=== PATIENT | male | born 1975 | race Caucasian/White ===

== ENCOUNTER 2020-04-04 16:32 | Emergency (ER) | payer BC, SELFPAY ==
[2020-04-04 16:49] VITALS: BP 160/90; PULSE 60; RESP 16; TEMP 36.8; O2SAT 98; BMI 33.9
[2020-04-04 17:29] VITALS: BP 160/90; PULSE 60; RESP 16; TEMP 36.8; O2SAT 98; BMI 33.8
--- NOTE | 2020-04-04 17:54 | HMH.EDUTC ---
[facility] Disposition Clinical Impression: Infection of toenail Disposition: Home, Self-Care Condition on Discharge: Good Instructions: Cephalexin, Bacitracin Topical Additional Instructions: Use ointment around the toenail on both great toes as advised and take oral medication as prescribed *Call and make appointment with Podiatry for further treatment and evaluation Return if needed Straight to ER if any life threatening symptoms Follow up with Family doctor if needed Prescriptions: Bacitracin [Bacitracin Oint 0.9GM UDP] 1 each TP TID 10 Days #30 packet Transmission Status: Pending to [facility] cephALEXin [Keflex 500mg Cap] 500 mg PO Q6H 7 Days #28 cap Transmission Status: Pending to [facility] Referrals: PCP,No [Primary Care Provider] - As needed Juju Silvestre DPM [Staff Physician] - Leanne Edwards APRN [Nurse Practitioner] - Time of Disposition: 18:04 Medical Decision Making - Jonah Inquiry Pt receiving controlled substance: No Jonah was queried for this patient: No Vital Signs: 04/04/20 16:49 04/04/20 17:29 Temperature 98.2 F 98.2 F Temperature Source Oral Oral Pulse Rate [Right Brachial] 60 60 Respiratory Rate 16 16 Blood Pressure [Right Arm] 160/90 H 160/90 H Blood Pressure Mean [Right Arm] 113 113 Blood Pressure Source [Right Arm] Automatic Cuff Automatic Cuff Blood Pressure Position [Right Arm] Sitting Sitting 02 Sat by Pulse Oximetry 98 98 Oxygen Delivery Method Room Air Room Air [facility] HPI - General Stated complaint: Both big toes Nails Infected Time Seen by Provider: 04/04/20 17:54 Mode of Arrival: Ambulatory Source of Information: Patient Limitations: No Limitations Description of Symptoms (Recalled from Triage Doc. by RN): PATIENT C/O INFECTED TOENAILS ON BILATERAL FEET HEENT Symptoms (Recalled from RN notes): No Resp Symptoms (Recalled from RN notes): No Skin Symptoms (Recalled from RN notes): Yes MS Symptoms (Recalled from RN notes): Yes Functional Status (Recalled from RN notes): WNL - History of Present Illness Provider Complaint: Patient states that he has noticed that both his great toe nails are infected States that they are red around his nail and his toenails are thick and flaky State that he also noticed some drainage from the side of his left great toe that has continued to get worse States that they come in to see if he could get something to help to clear the infection - Related Data Home Medications Medication Instructions Recorded Confirmed Fluoxetine HCl [Prozac 20mg 40 mg PO DAILY 04/04/20 04/04/20 Capsule] Lansoprazole [Prevacid 24Hr] 15 mg PO DAILY 04/04/20 04/04/20 Metoprolol Tartrate [Lopressor 25 mg PO BID 04/04/20 04/04/20 25mg tablet] Mirtazapine 7.5 mg PO HS 04/04/20 04/04/20 Previous Rx's Medication Instructions Recorded Bacitracin [Bacitracin Oint 0.9GM 1 each TP TID 10 Days #30 packet 04/04/20 UDP] cephALEXin [Keflex 500mg Cap] 500 mg PO Q6H 7 Days #28 cap 04/04/20 Allergies Allergy/AdvReac Type Severity Reaction Status Date / Time No Known Allergies Allergy Verified 04/04/20 17:35 - Worker's Comp Is this a Worker's Comp case?: No [facility] History - Hepatitis A Screen Drug use history?: No High risk sexual behaviors?: No History of sexually transmitted infection?: No Currently employed?: No Childcare worker?: No Do you have indoor plumbing?: Yes Do you have electricity?: Yes Attestation statement:: This patient has been screened for Hepatitis A risk factors. I have reviewed the patient's past medical history: Yes - Social History Smoking Status: Current every day smoker Tobacco Type: cigarettes # Packs/Day (cigarettes): 1 Alcohol Intake: never Occupational Status: other ROS Obtained: Yes All systems reviewed & no additional complaints, Yes Systems reviewed as appropriate & no additional complaints - Allergic/Immunologic Comments: Bilateral infected great toenails
[2020-04-04 18:05] VITALS: BP 160/90; PULSE 60; RESP 16; TEMP 36.8; O2SAT 98
== END 2020-04-04 18:10 | disposition home or self-care (01) ==
LOC: ER 16:55 → UTC 16:56
PROVIDERS: Emergency Provider Nurse Practitioner
DX: L03.031 Cellulitis of right toe (principal); L03.032 Cellulitis of left toe; F17.210 Nicotine dependence, cigarettes, uncomplicated; K21.9 Gastro-esophageal reflux disease without esophagitis; I10 Essential (primary) hypertension; F41.8 Other specified anxiety disorders; Z79.899 Other long term (current) drug therapy
CPT/HCPCS: 99201

== ENCOUNTER 2020-04-08 14:05 | Emergency (ER) | payer BC, SELFPAY ==
--- NOTE | 2020-04-08 14:04 | ECG_ITS ---
APPROVED REPORT Exam: Resting ECG HR:54 bpm ECG Measurements Heart Rate 54 AXES NE 142 P 38 QRSd 90 QRS 10 QT 424 T 33 QTc 402 <Conclusion> Sinus bradycardia Otherwise normal ECG Electronically signed by : Robert Guadlaupe, 04/11/2020 17:15:19
[2020-04-08 14:05] VITALS: BP 116/73; PULSE 59; RESP 18; TEMP 36.6; O2SAT 98; BMI 35.2
--- NOTE | 2020-04-08 14:13 | HMH.EDGENADL ---
ED Disposition Clinical Impression: Chest pain Qualifiers: Chest pain type: unspecified Qualified Code(s): R07.9 - Chest pain, unspecified Disposition: Home, Self-Care Condition on Discharge: Good Instructions: DI for Chest Pain Additional Instructions: Additional instructions for CHEST PAIN: Follow-up in the office with Dr. Flynn. Call tomorrow to make that appointment. Return immediately if worsening chest pain, vomiting, shortness of breath, fever, coughing of blood. Referrals: PCP,No [Primary Care Provider] - Anthony Flynn MD [Staff Physician] - - Critical Care Critical Care Time: No Attestation: On , the high probability of a clinically significant, sudden or life threatening deterioration of the following system(s) required my full and direct attention, intervention and personal management. The time I documented below is in addition to time spent performing reported procedures but includes the following listed in this critical care notation. Medical Decision Making - Jonah Inquiry Pt receiving controlled substance: No Vital Signs: 04/08/20 14:05 Temperature 97.9 F Temperature Source Oral Pulse Rate [Radial] 59 L Respiratory Rate 18 Blood Pressure [Right Arm] 116/73 Blood Pressure Mean [Right Arm] 87 Blood Pressure Source [Right Arm] Automatic Cuff Blood Pressure Position [Right Arm] Sitting 02 Sat by Pulse Oximetry 98 Oxygen Delivery Method Room Air - Lab Data Lab Results 04/08/20 14:07: WBC 9.7, RBC 5.38, Hgb 16.3, Hct 46.8, MCV 86.9, MCH 30.4, MCHC 34.9, RDW 13.9, Plt Count 347, MPV 7.7, Neut % (Auto) 57.4, Lymph % (Auto) 34.0, [place] % (Auto) 4.5, Eos % (Auto) 2.9, Baso % (Auto) 1.2, Neut # (Auto) 5.6, Lymph # (Auto) 3.3, [place] # (Auto) 0.4, Eos # (Auto) 0.3, Baso # (Auto) 0.1 04/08/20 14:07: Sodium 138, Potassium 4.2, Chloride 103, Carbon Dioxide 26, Anion Gap 13.2, BUN 12, Creatinine 0.80, Estimated Creat Clear 192, Estimated GFR 104, Est GFR ( Amer) 126, Glucose 102 H, Calcium 8.8, Total Bilirubin 0.4, AST 37, ALT 33, Alkaline Phosphatase 142 H, Troponin I < 0.01, Total Protein 7.0, Albumin 4.1, Globulin 2.9, Albumin/Globulin Ratio 1.4 04/08/20 16:59: Troponin I < 0.01 Result diagrams: 04/08/20 14:07 04/08/20 14:07 Orders (Tests/Meds): ORDERS Category Date Time Status Troponin I Q3H Lab 04/08/20 20:15 Ordered - Radiology Data #1 Image(s): Chest Image Reviewed: Yes I reviewed the patient's radiology image Preliminary Findings: Normal/NAD - ECG Data Tracing #1 EKG interpreted by Dar Mack MD: Rhythm: sinus bradycardia Rate: 54 [place]: normal Ectopy: none Conduction: normal ST Segment Changes: none T Wave Changes: none Q Waves: none No evidence of acute ischemia or injury - Physician Consults Physician Consulted: MAXI Diaz, for Dr. Flynn Time: 17:15 Reason -: Cardiology Eval/Care Comment/Response: If second troponin negative, can discharge to follow-up in their office - Reevaluation(s) Time: 18:27 Reevaluation #1: Second troponin negative. Patient says he feels better. No chest pain. Discussed follow-up in the office with Dr. Flynn and he is agreeable. General Adult HPI - General Chief complaint: Chest Pain Stated complaint: Chest Pain Time Seen by Provider: 04/08/20 14:13 - History of Present Illness HPI narrative: The patient arrives by ambulance for chest pain. He is currently in alcohol rehab in [facility]. He says that both of his legs feel tingly for the past 2 days, left worse than right. Last night he began experiencing intermittent sternal chest pressure brought on by smoking and lasting about 5 minutes per episode. This morning his right shoulder began hurting. Pain comes and goes and hurts worse with movement. Denies nausea, vomiting, shortness of breath. He does not have any known heart problems and is never had a cardiac work-up to his knowledge. He is a smoker and has hypertensi
--- NOTE | 2020-04-08 14:14 | XR_ITS ---
PROCEDURE: XR CHEST 2V CLINICAL HISTORY: chest pain COMPARISON: No exams were available for comparison FINDINGS: The cardiomediastinal silhouette and pulmonary vascularity are within normal limits. The lungs are clear without infiltrates, suspicious nodules, or pleural effusions. No acute bony abnormalities. IMPRESSION: No acute findings. Dictated by: Jon Nagy MD 04/08/2020 14:42 Electronically signed by Jon Nagy MD in [place] 04/08/2020 14:42
[2020-04-08 14:22] LABS: Basophils # 0.1 K/mm3 (0-0.2); Basophils % 1.2 % (0.1-2.0); Chloride 103 mmol/L (98-107); Eosinophils # 0.3 K/mm3 (0.0-0.4); Eosinophils % 2.9 % (0.1-12.0); Hematocrit 46.8 % (42.0-52.0); Hemoglobin 16.3 g/dL (14.1-18.0); Lymphocytes # 3.3 K/mm3 (0.7-4.5); Mean Corpuscular HGB Conc 34.9 g/dL (31.8-35.4); Mean Corpuscular Hemoglobin 30.4 pg (27.0-31.2); Mean Corpuscular Volume 86.9 fl (80-94); Mean Platelet Volume 7.7 fl (7.4-10.4); Monocytes # 0.4 K/mm3 (0.1-1.0); Monocytes % 4.5 % (1.7-9.3); Neutrophils # 5.6 K/mm3 (1.8-7.8); Neutrophils % 57.4 % (37.0-80.0); Platelet Count 347 K/mm3 (142-424); Red Blood Count 5.38 M/mm3 (4.60-6.20); Red Cell Distribution Width 13.9 % (11.5-17.5); White Blood Count 9.7 K/mm3 (4.8-10.8)
[2020-04-08 14:23] LABS: Potassium 4.2 mmoL/L (3.5-5.1); Sodium 138 mmol/L (136-145)
[2020-04-08 14:25] LABS: Alanine Aminotransferase 33 U/L (12-78); Alkaline Phosphatase 142 U/L (38-126); Anion Gap 13.2 mEq/L (5-15); Aspartate Amino Transferase 37 U/L (17-59); Bilirubin,Total 0.4 mg/dl (0.2-1.3); Blood Urea Nitrogen 12 mg/dl (9-20); Carbon Dioxide 26 mmol/L (22.0-30.0); Creatinine Clearance Estimated 192 mL/min (50-200); Estimated Glomerular Filt Rate 104 ml/min (>60); GFR (African American) 126 ML/MIN (>60)
[2020-04-08 14:26] LABS: Albumin Level 4.1 g/dl (3.5-5.0); Albumin/Globulin Ratio 1.4 (1.1-1.8); Calcium 8.8 mg/dl (8.4-10.2); Globulin 2.9 g/dL (1.3-3.2); Glucose 102 mg/dl (74-100)
--- NOTE | 2020-04-08 14:33 | PC.NURSE ---
Pt returned from rad, to restroom
[2020-04-08 15:15] LABS: Troponin I < 0.01 ng/ml (0.00-0.034)
--- NOTE | 2020-04-08 16:50 | PC.NURSE ---
Dr Mack speaking to Jeramy GERMAN about pt at this time
[2020-04-08 17:29] LABS: Troponin I < 0.01 ng/ml (0.00-0.034)
--- NOTE | 2020-04-08 18:38 | PC.NURSE ---
[facility] called for pt transport. They advised to call [facility] cab for pt. I advised them we did not have a [facility] ccab in this [place]. Shruthi was going to call her wastewater treatment supervisor and call back.
--- NOTE | 2020-04-08 18:42 | PC.NURSE ---
Patient continues to refuse vital signs.
[2020-04-08 19:20] VITALS: BP 122/72; PULSE 62; RESP 14; TEMP 36.6; O2SAT 98
== END 2020-04-08 20:08 | disposition home or self-care (01) ==
PROVIDERS: Emergency Provider Emergency Medicine
DX: R07.9 Chest pain, unspecified (principal); I10 Essential (primary) hypertension; F12.10 Cannabis abuse, uncomplicated
CPT/HCPCS: 71046; 80053; 84484; 85025; 93005; 99283